=== PATIENT | female | born 2005 | race Caucasian/White ===

== ENCOUNTER 2024-09-03 10:21 | Emergency (ER) | payer MEDICAID ==
[~2024-09-03] VITALS: Ht 149.9 cm; Wt 96.6 kg
[2024-09-03 10:26] VITALS: O2SAT 98
[2024-09-03 11:09] LABS: BASOPHILS % 0.4 % (0.0-2.0); EOSINOPHILS % 0.3 % (0.0-5.0); HEMATOCRIT. 35.5 % (36.0-48.0); HEMOGLOBIN. 11.6 g/dL (12.0-16.0); LYMPHOCYTES % 19.6 % (20.0-50.0); MEAN CORPUSCULAR HEMOGLOBIN 27.9 pg (28.0-32.0); MEAN CORPUSCULAR HGB CONC 32.7 g/dL (31.0-37.0); MEAN CORPUSCULAR VOLUME 85.4 fL (81.0-99.0); MONOCYTES % 7.2 % (2.0-8.0); NEUTROPHILS % 72.5 % (40.0-76.0); PLATELET 312 x1000/uL (130-400); RED BLOOD CELL COUNT 4.16 mill/uL (4.2-5.4); RED CELL DISTRIBUTION WIDTH 15.5 % (11.6-14.6); WHITE BLOOD COUNT 7.7 x1000/uL (4.5-11.0)
[2024-09-03 11:21] LABS: INR 0.9; PARTIAL THROMBOPLASTIN TIME 25.3 sec (23.4-31.0); PROTHROMBIN TIME 9.9 sec (9.6-11.0)
[2024-09-03 11:47] LABS: INFLUENZA TYPE A Presumptive Negative (Pres. Neg.); INFLUENZA TYPE B Presumptive Negative (Pres. Neg.)
[2024-09-03 11:48] LABS: RESPIRATORY SYNCYTIAL VIRUS Not Detected (Not Detectd)
[2024-09-03 13:21] VITALS: BP 105/60; PULSE 97; RESP 14; TEMP 36.6; O2SAT 98
== END 2024-09-03 13:21 | disposition home or self-care (01) ==
LOC: ER 10:21
DX: O26.893 Other specified pregnancy related conditions, third trimester (principal); R04.0 Epistaxis; Z3A.33 33 weeks gestation of pregnancy; O99.113 Other diseases of the blood and blood-forming organs and certain disorders involving the immune mechanism complicating pregnancy, third trimester; O98.513 Other viral diseases complicating pregnancy, third trimester; Z20.822 Contact with and (suspected) exposure to COVID-19
CPT/HCPCS: 85025; 85610; 85730; 86850; 86900; 86901; 87420; 87804 ×2; 36415; 99283; 87426; Z7610